=== PATIENT | female | born 1965 | race Caucasian/White ===

== ENCOUNTER → 2018-08-18 | Outpatient (CLI) | payer BC ==
[~2018-08-18] MED LIST: B COMPLEX1 TA1 PO; CO Q-1050 MG PO; FE-TABS325 MG PO; FISH OIL 10001000 MG PO; LIGAPLEX PO; MOTRIN800 MG PO; NATURE'S BLEN200 MCG PO; PROBIOTIC FORMU1 CAP PO; ULTRAM50 MG PO; VITAMIN C PO; VITAMIN D2000 IU PO
[2018-08-18 19:19] LABS: VITAMIN D, 25-HYDROXY 37.2 ng/mL (30-100)
[2018-08-19 06:10] LABS: LUTEINIZING HORMONE 004283 55.8 mIU/mL (.)
[2018-08-19 19:03] LABS: TESTOSTERONE FREE, (DIRECT) 1.2 pg/mL (0.0-4.2)
== END | disposition home or self-care (01) ==
LOC: LAB 16:52
PROVIDERS: Family Medicine
DX: E55.9 Vitamin D deficiency, unspecified (principal); R53.83 Other fatigue

== ENCOUNTER → 2019-01-07 | Outpatient (CLI) | payer BC ==
[2019-01-07 12:29] LABS: HEMATOCRIT 35.3 % (37.0-47.0); HEMOGLOBIN 11.3 g/dl (12.0-16.0); MEAN CELL VOLUME 85.3 fl (81.0-99.0); MEAN CORPUSCULAR HGB 27.3 pg (27.0-31.0); MEAN PLATELET VOLUME 10.1 fl (9.6-12.3); RED BLOOD COUNT 4.14 10*6/uL (4.10-5.10); RED CELL DISTRI WIDTH 14.7 % (0-14.5); WHITE BLOOD COUNT 6.3 10*3/uL (4.8-10.8)
[2019-01-07 12:58] LABS: BUN 12 mg/dl (7-24); CHLORIDE 101 mmol/L (98-107); POTASSIUM 3.8 mmol/L (3.5-5.1); SGOT/AST 26 IU/L (3-35); SGPT/ALT 47 U/L (12-78); SODIUM 135 mmol/L (136-145)
[2019-01-07 13:08] LABS: ALKALINE PHOSPHATASE 54 U/L (45-117); TOTAL PROTEIN 6.8 gm/dL (6.4-8.2)
== END | disposition home or self-care (01) ==
LOC: LAB 11:37
PROVIDERS: Family Medicine
DX: E55.9 Vitamin D deficiency, unspecified (principal); R55 Syncope and collapse; I95.9 Hypotension, unspecified; R00.1 Bradycardia, unspecified

== ENCOUNTER → 2019-01-09 | Outpatient (CLI) | payer BC | END | disposition home or self-care (01) | LOC: CARD 08:23 | DX: R00.1 Bradycardia, unspecified (principal); R55 Syncope and collapse ==

== ENCOUNTER → 2021-05-16 | Outpatient (CLI) | payer BC | END | disposition home or self-care (01) | LOC: COVID19 17:01 | PROVIDERS: ATTEND Internal Medicine | DX: Z11.52 Encounter for screening for COVID-19 (principal) ==